=== PATIENT | female | born 2000 | race Two or more races ===

== ENCOUNTER → 2025-02-12 | Outpatient (CLI) | payer MEDICAID, SELFPAY ==
--- NOTE | 2025-02-12 12:41 | XR_ITS ---
EXAMINATION: PA lateral chest 2 views TECHNIQUE: Upright PA lateral chest 2 views Date and time: February 12, 2025 1244 hours INDICATION: Shortness of breath beginning 2 weeks ago. FINDINGS: Normal heart size Lungs are clear. The [place] structures are intact IMPRESSION: No active disease
== END | disposition home or self-care (01) ==
DX: R00.0 Tachycardia, unspecified (principal); R06.02 Shortness of breath
CPT/HCPCS: 71046